=== PATIENT | female | born 1995 | race African-American/Black ===

== ENCOUNTER → 2016-07-21 | Outpatient (CLI) | payer OTHER ==
--- NOTE | 2016-07-21 14:38 | US ---
Complete Pelvic Sonography (Transabdominal and Endovaginal) Clinical History: 21-year-old female whose LMP was in April 2016. The patient is G0, P0 and has bee n on oral contraceptives since February to stop vaginal bleeding. There is no prior pelvic surgery hist ory. ICD-10 Diagnostic Code: N92.1. Technique: A curvilinear 5 MHz transducer was used to sonographically evaluate the pelvis, although t he urinary bladder was not distended. To better assess the uterine architecture and the adnexal struc tures, endovaginal pelvic sonography was also performed. Color Doppler and spectral Doppler are used. Comparison Study: None. Findings: Transabdominal Pelvic Sonography: The uterus is anteverted and anteflexed, measuring 6.9 x 3.5 x 3.6 cm. There is some fluid in the lower endometrial and endocervical canal. There is no free fluid in th e cul-de-sac. The right and left ovaries appear normal. Intraovarian vascular flow is documented. Endovaginal Pelvic Sonography: The endometrial thickness is normal, measuring 2.6 mm. There is no foc al myometrial abnormality. As was noted above, there is a small amount of fluid in the endocervical c anal. The right ovary measures 1.9 x 2.4 x 3.2 cm, and contains some tiny peripheral anechoic follicl es and has a volume of 9.2 mL. The left ovary measures 2.7 x 1.7 x 2.6 cm with a volume of 6.2 mL, an d also contains some tiny follicles. Intraovarian vascular flow is documented. The resistive index as sociated with the left ovary is 0.55, and with the right ovary is 0.54. There is no dominant solid or cystic adnexal mass, torsion, or free fluid. Impression: Findings are within normal limits.
== END ==
LOC: BRMIMAGING 13:07
PROVIDERS: ATTEND Midwife
DX: N92.1 Excessive and frequent menstruation with irregular cycle (principal)
CPT/HCPCS: 76856-PO

== ENCOUNTER 2016-10-08 17:43 | Emergency (ER) | payer OTHER ==
[2016-10-08 17:50] VITALS: BP 125/78; PULSE 96; RESP 15; TEMP 98.1; O2SAT 96
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
== END 2016-10-08 18:40 | disposition home or self-care (01) ==
DX: S46.912A Strain of unspecified muscle, fascia and tendon at shoulder and upper arm level, left arm, initial encounter (principal); V49.69XA Unspecified car occupant injured in collision with other motor vehicles in traffic accident, initial encounter; Y92.410 Unspecified street and highway as the place of occurrence of the external cause